=== PATIENT | female | born 1980 | race Caucasian/White ===

== ENCOUNTER 2017-03-30 18:02 | Emergency (ER) | payer BC ==
[2017-03-30] MEDS ORDERED: LIDOCAINE 1% INJ-PF (10 MG/ML) 30 ML SDV INJ ONE (19:20)
[2017-03-30] MEDS ORDERED: DIPH/PERTUSS(ACELL)/TETANUS VAC/PF 0.5 ML SYR (>=10YO) IM ONE (19:22)
--- NOTE | 2017-03-30 19:29 | ER Document Report ---
HPI - HPI Patient complains to provider of: laceration to distal left 2nd finger Onset: This evening Onset/Duration: Sudden Quality of pain: Sharp Severity: Severe Pain Level: 5 Associated Symptoms: Other - finger laceration Exacerbated by: Movement Relieved by: Denies Similar symptoms previously: Yes Recently seen / treated by doctor: Yes - ROS ROS below otherwise negative: Yes - CONSTITUTIONAL Constitutional: DENIES: Fever, Chills - EENT EENT: DENIES: Sore Throat, Ear Pain, Nasal Drainage-Clear, Nasal Drainage- Purulent, Congestion, Eye problems - NEURO Neurology: DENIES: Headache, Weakness, Vision blurred, Dizzinesss / Vertigo - CARDIOVASCULAR Cardiovascular: DENIES: Chest pain - RESPIRATORY Respiratory: DENIES: Trouble Breathing, Coughing - GASTROINTESTINAL Gastrointestinal: DENIES: Abdominal Pain, Nausea, Patient vomiting, Diarrhea, Constipation, Black / Bloody Stools - URINARY Urinary: DENIES: Dysuria, Urgency, Frequency - REPRODUCTIVE Reproductive: DENIES: :, Postmenopausal, Abnormal bleeding / discharge - MUSCULOSKELETAL Musculoskeletal: REPORTS: Extremity pain. 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 denies: DM, Thyroid Disfunction Patient has suicidal ideation: No Patient has homicidal ideation: No - Past Medical History Cardiac Medical History: Reports: None Pulmonary Medical History: Reports: None EENT Medical History: Reports: None Neurological Medical History: Reports: None Renal/ Medical History: Reports: Hx Kidney Stones Malignancy Medical History: Reports: None GI Medical History: Reports: Hx Gastroesophageal Reflux Disease, Hx Irritable Bowel, Hx Endoscopy Musculoskeltal Medical History: Reports Hx Arthritis Skin Medical History: Reports None Psychiatric Medical History: Reports: None Traumatic Medical History: Reports: None Infectious Medical History: Reports: None Past Surgical History: Reports: Hx Cholecystectomy Vertical Provider Document - CONSTITUTIONAL Agree With Documented VS: Yes Exam Limitations: No Limitations - INFECTION CONTROL TRAVEL OUTSIDE OF THE [place] IN LAST 30 DAYS: No - HEENT HEENT: Atraumatic, Normal ENT Exam, Normocephalic, PERRLA - NECK Neck: Normal Inspection, Supple, Thyroid Normal - RESPIRATORY Respiratory: Breath Sounds Normal, No Respiratory Distress, Chest Non-Tender O2 Sat by Pulse Oximetry: 99 - CARDIOVASCULAR Cardiovascular: Regular Rate, Regular Rhythm, No Murmur - GI/ABDOMEN Gastrointestinal: Abdomen Soft, Abdominal Guarding, No Organomegaly, Normal Bowel Sounds - BACK Back: Normal Inspection - MUSCULOSKELETAL/EXTREMETIES Musculoskeletal/Extremeties: MAEW, FROM, Tender - NEURO Level of Consciousness: Awake, Alert, Appropriate Deep Tendon Reflexes: 2+ - DERM Integumentary: Laceration - left 2nd finger Course - Vital Signs Vital signs: Temp Pulse Resp BP Pulse Ox 98.3 F 84 16 136/95 H 99 03/30/17 18:04 03/30/17 18:04 03/30/17 18:04 03/30/17 18:04 03/30/17 18:04 Procedures - Laceration/Wound Repair distal Left index Finger Time completed: 20:10 Wound length (cm): 2 Wound's Depth, Shape: Into muscle, Irregular Laceration pre-procedure: Sterile PPE donned, Sterile drapes applied, Other - surgical scrub Anesthetic type: 1% Lidocaine Volume Anesthetic (mLs): 3 Wound explored: No foreign body removed, Contaminated Irrigated w/ Saline (mLs): 400 Wound Repaired With: Sutures Suture Size/Type: 5:0, Ethilon Number of Sutures: 5 Layer Closure?: No Post-procedure wound care: Sterile dressing applied Post-procedure NV exam normal: Yes Complications: No Discharge - Discharge Clinical Impression: Laceration of index finger of left hand without complication Qualifiers: Encounter type: initial encounter Qualified Code(s): S61.211A - Laceration without foreign body of left index finger without damage to nail, initial encounter Condition: Stable Disposition: HOME, SELF-CARE Additional Instructions: Hand Laceration A laceration on the hand can present special problems. It may be difficult to keep the wound dry. Motion of the fingers can disturb the healing edges. Your work may involve exposure to damaging chemicals or water. Keep the wound clean and dry. If you can't keep the cut dry, undisturbed, and free of chemical exposure, please discuss this with the doctor. If any water or chemical gets onto the dressing, remove it, blot the wound dry, then apply a fresh bandage. Dressings should be changed every day. If you feel the stitches pulling as you move the hand, a splint or other form of protection is needed. If any signs of infection occur (swelling, redness, increasing tenderness, red streaks, tender lumps in the armpit, or fever), see the doctor immediately. SOAP CLEANSING: Gently wash the wound daily using a mild soap (like Ivory, Phisoderm, Neutrogena). Use warm water, rubbing gently until all debris, ooze, and crusting have been washed from the wound. Allow to dry briefly (about 10 minutes) after cleaning. Repeat this cleansing at least three times a day for the first two days and then once or twice a day. ANTIBIOTIC OINTMENT PROTECTION: Your wounds are such that dressing them is not practical or optional. After cleansing, you should apply a thin coating of antibiotic ointment ( Bacitracin, not Neosporin) to the wounds at least three times daily. This lessens infection risk, and may decrease the amount of scarring. Use a q-tip or dull butter knife, not your finger, to apply this ointment. Any debris or ooze which builds up in the ointment should be gently rubbed off with a sterile gauze pad. Harder crusting may need to be gently scrubbed off with a clean wash cloth with soap and warm water, perhaps applying a warm, wet wash cloth to the wound for ten minutes first. Development of redness, severe itching, or blistering may mean allergy to the ointment. See the doctor. TETANUS IMMUNIZATION GIVEN: You have been given an immunization against tetanus. Please record this in your records. In general, a booster is needed only once every 10 years. The tetanus shot protects against tetanus or "lockjaw," which is a complication of certain wound infections (the tetanus shot cannot protect against the actual infection). The immunization site may become warm and red due to local reaction. If this occurs, apply warm compresses and take aspirin or ibuprofen to reduce inflammation and discomfort. Return for evaluation if the reaction becomes severe. FOLLOW-UP CARE: Please return in __3___ days for an infection check and dressing change. Your sutures should be removed in __8___ days. To facilitate a timely removal of your sutures, you may return to the Emergency Department at [facility]. You do not need to call for an appointment, but the best time to come in for suture removal is early in the morning. If you have been referred to another physician for follow-up care, call that physicians office for an appointment as you were instructed. If you experience a significant change in your laceration, or if you are concerned there may be an infection (swelling, redness, drainage, increasing tenderness, red streaks, tender lumps in the armpit or groin above the laceration, or fever) , return to the Emergency Department immediately re-evaluation. Forms: Elevated Blood Pressure, Return to Work [facility] [[facility]] - Follow up as needed
[2017-03-30 20:26] VITALS: BP 126/82
== END 2017-03-30 20:26 | disposition home or self-care (01) ==
LOC: ER 18:02
PROC: 0HQGXZZ Repair Left Hand Skin, External Approach (ICD-10-PCS; principal; 2017-03-30)
DX: S61.211A Laceration without foreign body of left index finger without damage to nail, initial encounter (principal); X58.XXXA Exposure to other specified factors, initial encounter; Z87.442 Personal history of urinary calculi; K21.9 Gastro-esophageal reflux disease without esophagitis; Z90.49 Acquired absence of other specified parts of digestive tract; Z23 Encounter for immunization
CPT/HCPCS: 99282; 90471; 90715; 12001; J3490

== ENCOUNTER 2017-05-31 08:28 | Day surgery (SDC) | payer BC ==
[~2017-05-31 08:28] MED LIST: PROPOFOL INJ 200 MG/20 ML VIAL IV ONE
[2017-05-31 10:51] VITALS: BP 100/74
--- NOTE | 2017-05-31 14:15 | Operative Report ---
Operative Report DATE OF SURGERY: 05/31/17 Operative Report: The risks, benefits and alternatives of the procedure including risks of bleeding, perforation requiring surgery are explained to the patient detail and informed consent was obtained. Patient was taken back to the endoscopy suite and placed in the left, lateral decubital position. Timeout was called. Propofol medications administered. A rectal examination was done which did not reveal any masses, tears or fissures. An Olympus videoscope was inserted into the patient's rectum. The scope was then carefully advanced all the way to the cecum. The cecum was identified by the usual anatomical landmarks including the ileocecal valve as well as appendiceal office. Photodocumentation was obtained. The scope was then sequentially pulled back via the various segments of the colon including the ascending colon, hepatic flexure, transverse colon, splenic flexure, descending colon and finding to the rectosigmoid portions of the colon. Retroflexion maneuver was performed. PREOPERATIVE DIAGNOSIS: Colorectal cancer screening. Rectal bleeding. POSTOPERATIVE DIAGNOSIS: Normal screening. Internal hemorrhoids OPERATION: Diagnostic colonoscopy SURGEON: ZENY COSTELLO ANESTHESIA: LMAC TISSUE REMOVED OR ALTERED: None. COMPLICATIONS: None. ESTIMATED BLOOD LOSS: None. INTRAOPERATIVE FINDINGS: No masses, AVMs, diverticulosis or polyps. PROCEDURE: Patient tolerated the procedure well. No immediate postprocedure complications are noted. Patient discharged in good condition. Discharge date 05/31/2017. Discharge diet: Regular. Discharge activity: Regular. 2-3 week follow-up to discuss findings. Patient is instructed to call the office or proceed to the emergency room should there be any further problems or questions. 10 year surveillance colonoscopy.
== END 2017-05-31 10:42 | disposition home or self-care (01) ==
LOC: END 08:28
PROVIDERS: ATTEND Internal Medicine Gastroenterology
PROC: 0DJD8ZZ Inspection of Lower Intestinal Tract, Via Natural or Artificial Opening Endoscopic (ICD-10-PCS; principal; 2017-05-31 11:00)
DX: K64.8 Other hemorrhoids (principal); K92.1 Melena; M19.90 Unspecified osteoarthritis, unspecified site; M06.9 Rheumatoid arthritis, unspecified; E66.9 Obesity, unspecified; Z88.0 Allergy status to penicillin; Z79.899 Other long term (current) drug therapy; Z68.37 Body mass index [BMI] 37.0-37.9, adult
CPT/HCPCS: 45378; J2704; 810

== ENCOUNTER → 2018-03-03 | Outpatient (CLI) | payer BC ==
[2018-03-03 18:11] LABS: ALANINE AMINOTRANSFERASE 24 U/L (9-52); ALBUMIN 4.3 g/dL (3.5-5.0); ALKALINE PHOSPHATASE 54 U/L (38-126); ANION GAP 11 (5-19); ASPARTATE AMINO TRANSFERASE 14 U/L (14-36); BILIRUBIN,DIRECT 0.2 mg/dL (0.0-0.4); BILIRUBIN,TOTAL 0.4 mg/dL (0.2-1.3); BLOOD UREA NITROGEN 19 mg/dL (7-20); CALCIUM 9.8 mg/dL (8.4-10.2); CARBON DIOXIDE 29 mmol/L (22-30); CHLORIDE 105 mmol/L (98-107); GLUCOSE 97 mg/dL (75-110); POTASSIUM 4.6 mmol/L (3.6-5.0); SODIUM 144.6 mmol/L (137-145); TOTAL PROTEIN 7.5 g/dL (6.3-8.2)
[2018-03-03 19:12] LABS: CHLAM PCR NOT DETECTED (NOT DETECT); GON PCR NOT DETECTED (NOT DETECT)
[2018-03-05 07:41] LABS: HEPATITIS A AB IGM Negative (Negative); HEPATITIS B CORE AB IGM Negative (Negative); HEPATITS B SURFACE ANTIGEN Negative (Negative)
[2018-03-05 09:00] LABS: HEPATITIS C VIRUS ANTIBODY 0.4 s/co ratio (0.0-0.9)
== END ==
LOC: OD 17:09
PROVIDERS: ATTEND Nurse Practitioner Family
DX: Z11.3 Encounter for screening for infections with a predominantly sexual mode of transmission (principal); Z68.34 Body mass index [BMI] 34.0-34.9, adult
CPT/HCPCS: 36415; 80053; 80074; 86592; 86701; 87491; 87591

== ENCOUNTER → 2018-03-05 | Outpatient (CLI) | payer BC ==
[2018-03-05 12:48] LABS: BACTERIA (WET MOUNT) 4+ BACTERIA SEEN; EPITHELIALS (WET MOUNT) 4+ EPITHELIALS SEEN; RBCS (WET MOUNT) FEW RBCS SEEN; T.VAGINALIS (WET MOUNT) NO TRICHOMONAS SEEN; WBCS (WET MOUNT) 1+ WBCS SEEN; YEAST (WET MOUNT) NO YEAST SEEN
== END ==
LOC: LAB 11:48
PROVIDERS: ATTEND Nurse Practitioner Family
DX: N89.8 Other specified noninflammatory disorders of vagina (principal)
CPT/HCPCS: 87210

== ENCOUNTER → 2018-04-19 | Outpatient (CLI) | payer BC | LOC: OD 12:34 | PROVIDERS: ATTEND Nurse Practitioner Family | DX: N91.2 Amenorrhea, unspecified (principal) | CPT/HCPCS: 36415; 84702 ==

== ENCOUNTER 2018-06-03 08:37 | Day surgery (SDC) | payer BC, MEDICAID ==
[2018-06-03] MEDS ORDERED: MIDAZOLAM 2 MG/2 ML INJ ONE ×2 (09:16→10:48)
[2018-06-03] MEDS ORDERED: FAMOTIDINE INJ/PF 20 MG/2 ML SDV IV ONE (09:16)
[2018-06-03] MEDS: METOCLOPRAMIDE HCL INJ/PF 10 MG/2 ML SDV ONE ×2 (09:22→09:24)
[2018-06-03 09:26] LABS: APPEARANCE,URINE CLOUDY; BILIRUBIN,URINE NEGATIVE (NEGATIVE); COLOR,URINE YELLOW; GLUCOSE, URINE NEGATIVE (NEGATIVE); KETONES,URINE NEGATIVE (NEGATIVE); LEUKOCYTE ESTERASE,URINE LARGE (NEGATIVE); NITRITE,URINE NEGATIVE (NEGATIVE); PROTEIN,URINE NEGATIVE (NEGATIVE); URINE SPECIFIC GRAVITY 1.015; UROBILINOGEN,URINE NEGATIVE mg/dL (<2.0)
[2018-06-03] MEDS ORDERED: RINGERS SOLUTION,LACTATED 1,000 ML IV PRN (09:35)
[2018-06-03 09:38] LABS: HEMATOCRIT 33.3 % (36.0-47.0); HEMOGLOBIN 11.4 g/dL (12.0-15.5); MEAN CORPUSCULAR HEMOGLOBIN 29.5 pg (27.0-33.4); MEAN CORPUSCULAR HGB CONC 34.2 g/dL (32.0-36.0); MEAN CORPUSCULAR VOLUME 86 fl (80-97); PLATELET COUNT 305 10^3/uL (150-450); RED BLOOD COUNT 3.86 10^6/uL (3.72-5.28); RED CELL DISTRIBUTION WIDTH 13.3 % (11.5-14.0)
[2018-06-03] MEDS ORDERED: RINGERS SOLUTION,LACTATED 500 ML IV ONE (09:45)
[2018-06-03] MEDS ORDERED: EPHEDRINE SULFATE INJ 50 MG/1 ML AMPULE ONE (10:48)
[2018-06-03] MEDS ORDERED: PROPOFOL INJ 200 MG/20 ML VIAL IV ONE (10:49)
[2018-06-03] MEDS ORDERED: HYDROMORPHONE HCL INJ/PF 2 MG/ML AMPULE ONE (10:49)
[2018-06-03] MEDS ORDERED: ONDANSETRON HCL INJ/PF 4 MG/2 ML SDV ONE (10:49)
[2018-06-03] MEDS ORDERED: PROMETHAZINE HCL INJ 25 MG/1 ML VIAL IV PRN (11:37)
[2018-06-03] MEDS ORDERED: FENTANYL CITRATE INJ/PF 100 MCG/2 ML AMPUL IV PRN ×3 (11:37)
[2018-06-03] MEDS ORDERED: MEPERIDINE HCL/PF INJ 25 MG/1 ML DISP.SYRIN IV PRN (11:37)
[2018-06-03] MEDS ORDERED: DIPHENHYDRAMINE HCL 50 MG/ML VIAL IV PRN (11:37)
--- NOTE | 2018-06-03 12:16 | OPERATIVE REPORT E ---
Operative Report NAME: ANTHONY CHOUDHURY : 1980 AGE: 37Y DATE OF SURGERY: 06/03/2018 ROOM: PREOPERATIVE DIAGNOSIS: Retained products of conception. POSTOPERATIVE DIAGNOSIS: Retained products of conception. PROCEDURE: Suction D and C. SURGEON: NGUYEN SANCHEZ M.D. ANESTHESIA: Dr. Evangelista with general. FINDINGS: The uterus sounded to approximately 12 cm, moderate amounts of products of conception obtained. COMPLICATIONS: None. ESTIMATED BLOOD LOSS: Less than 50 mL. SPECIMENS REMOVED: Products of conception. PROCEDURE IN DETAIL: The patient was taken to the operating room, prepared and draped in a normal sterile fashion in the dorsal lithotomy position. Under sterile conditions an in-and-out catheter was performed of approximately 20 mL of clear urine. A sterile speculum was placed in the vagina and the cervix was grasped on the anterior lip with a single-tooth tenaculum and prepped with the Betadine. The uterus was then sounded with the above findings. The cervix was then dilated to accommodate an 8 mm curved curette which was introduced without difficulty and moderate amounts of products of conception were obtained. Approximately 3 passes were made with the suction curette until there was very minimal products and then a sharp curettage was performed with good grit in [address] around. The instruments were then removed. Sponge, lap, and needle counts were correct x2, and the patient was taken to recovery in stable condition. DICTATING PHYSICIAN: NGUYEN SANCHEZ M.D. [id number] PHY#: [id number] ID: [id number] JOB#: [id number] ACCT: [id number] cc:NGUYEN SANCHEZ M.D. >
[2018-06-03] MEDS ORDERED: ONDANSETRON 4 MG TAB.RAPDIS ONE (13:18)
[2018-06-03 14:57] VITALS: BP 130/78
== END 2018-06-03 15:10 | disposition home or self-care (01) ==
LOC: OROUT 08:37
PROVIDERS: ATTEND Obstetrics & Gynecology
DX: O73.1 Retained portions of placenta and membranes, without hemorrhage (principal); M06.9 Rheumatoid arthritis, unspecified; Z88.0 Allergy status to penicillin
CPT/HCPCS: 36415; 85027; 81001; 88305 ×2; 59812; J2250; S0119; J2765; J1170; J2550; J2405; J2704; S0028; 1965; J3490

== ENCOUNTER → 2019-02-28 | Outpatient (CLI) | payer BC ==
--- NOTE | 2019-02-28 18:16 | RADIOLOGY REPORT (SQ) ---
EXAM DESCRIPTION: CHEST 2 VIEWS COMPLETED DATE/TIME: 02/28/2019 5:56 pm REASON FOR STUDY: R05 COUGH COMPARISON: 09/02/2009 EXAM PARAMETERS: NUMBER OF VIEWS: two views TECHNIQUE: Digital Frontal and Lateral radiographic views of the chest acquired. RADIATION DOSE: NA LIMITATIONS: none FINDINGS: LUNGS AND PLEURA: No opacities, masses or pneumothorax. No pleural effusion. MEDIASTINUM AND HILAR STRUCTURES: No masses or contour abnormalities. HEART AND VASCULAR STRUCTURES: Heart normal size. No evidence for failure. BONES: No acute findings. HARDWARE: None in the chest. OTHER: No other significant finding. IMPRESSION: NO ACUTE RADIOGRAPHIC FINDING IN THE CHEST. TECHNICAL DOCUMENTATION: JOB ID: [id number] [employer]- All Rights Reserved Reading location - IP/workstation name: [email or web address]
== END ==
LOC: RAD 17:22
PROVIDERS: ATTEND Nurse Practitioner Family
DX: R05 Cough (principal)
CPT/HCPCS: 71046

== ENCOUNTER → 2019-07-09 | Outpatient (CLI) | payer BC ==
[2019-07-09 15:21] LABS: CHLAM PCR NOT DETECTED (NOT DETECT)
== END ==
LOC: LAB 13:28
PROVIDERS: ATTEND Nurse Practitioner Family
DX: Z11.3 Encounter for screening for infections with a predominantly sexual mode of transmission (principal)
CPT/HCPCS: 87491; 87591

== ENCOUNTER 2020-06-14 12:45 | Emergency (ER) | payer BC, MEDICAID ==
--- NOTE | 2020-06-14 13:34 | ER Document Report ---
ED Fall - General Chief Complaint: Fall Injury Stated Complaint: FALL/HEAD INJURY Time Seen by Provider: 06/14/20 13:12 Primary Care Provider: NATHALY WITT NP [Primary Care Provider] - Follow up as needed Notes: CHIEF COMPLAINT: Head injury from fall HPI: 39-year-old female who is 32 weeks gestation presenting for head injury. Patient was wearing flip-flops climbing stairs when she tripped and fell rolling down the stairs. Struck the right side of her head on a rail no loss of consciousness. Complains of very mild headache. Mild left lateral neck pain. Patient was brought in by EMS. Patient was placed in a cervical collar. Patient denies any abdominal pain. She does complain of some soreness down the right side of the body. Patient does complain of a laceration to the right scalp where she struck the rail. States she is up-to-date on her tetanus vaccination. Denies vaginal bleeding or discharge ROS: See HPI - all other systems were reviewed and are otherwise negative Constitutional: no fever Eyes: no drainage, no blurred vision ENT: no runny nose, no sore throat Cardiovascular: no chest pain Resp: no SOB, no cough GI: no vomiting, no diarrhea, no abdominal pain : no dysuria Integumentary: no rash, positive laceration Allergy: no hives Musculoskeletal: no extremity pain or swelling, positive neck pain Neurological: no numbness/tingling, no weakness, positive head injury MEDICATIONS: I agree with the patient medications as charted by the RN. ALLERGIES: I agree with the allergies as charted by the RN. PAST MEDICAL HISTORY/PAST SURGICAL HISTORY: Reviewed and agree as charted by RN. SOCIAL HISTORY: Reviewed and agree as charted by RN. FAMILY HISTORY: No significant familial comorbid conditions directly related to patient complaint EXAM: Reviewed vital signs as charted by RN. CONSTITUTIONAL: Alert and oriented and responds appropriately to questions. Well-appearing; well-nourished HEAD: Normocephalic; there is a wound to the right parietal scalp region, unable to definitively visualize it at this time initially secondary to positioning, dried blood in the region EYES: PERRL; Conjunctivae clear, sclerae non-icteric ENT: normal nose; no rhinorrhea; moist mucous membranes; pharynx without lesions noted, no uvula edema or deviation, no tonsillar hypertrophy, phonation normal NECK: Supple without meningismus; non-tender directly over the cervical spine on palpation. The cervical collar was removed, patient is able to fully rotate the head to the left and right as well as flex and extend without any discomfort over the cervical spine. Minimal tenderness in his lateral left cervical musculature; no cervical lymphadenopathy, no masses CARD: RRR; no murmurs, no clicks, no rubs, no gallops; symmetric distal pulses RESP: Normal chest excursion without splinting or tachypnea; breath sounds clear and equal bilaterally; no wheezes, no rhonchi, no rales, pulse oximetry ABD/GI: Normal bowel sounds; non-distended; soft, non-tender, no rebound, no guarding; gravid uterus palpable. BACK: The back appears normal and is non-tender to palpation, there is no CVA tenderness EXT: Normal ROM in all joints; non-tender to palpation; no cyanosis, no effusions, no edema SKIN: Normal color for age and race; warm; dry; good turgor; no acute lesions noted NEURO: Moves all extremities equally; Motor and sensory function intact PSYCH: The patient's mood and manner are appropriate. Grooming and personal hygiene are appropriate. MDM: 39-year-old female reporting decreased movement after a mechanical fall where she fell down 6 stairs. Did hit her head on the rail, has a laceration is up-to-date on tetanus vaccination. Nursing was unable to get heart tones here, patient has a large body habitus. Will send for ultrasound to evaluate . We will clean wound area and reassess wound to determine if it needs closure with shayla or sutures or no closure. TRAVEL OUTSIDE OF THE [place] IN LAST 30 DAYS: No - Related data Allergies/Adverse Reactions: Penicillins Allergy (Severe, Verified 05/31/17 08:58) RASH Past Medical History - Social History Smoking Status: Never Smoker Chew tobacco use (# tins/day): No Frequency of alcohol use: None Drug Abuse: None Family History: Arthritis, CAD, CVA, Hyperlipidemia, Hypertension, Malignancy. denies: DM, Thyroid Disfunction Patient has homicidal ideation: No - Past Medical History Cardiac Medical History: Denies: Hx Coronary Artery Disease, Hx Heart Attack, Hx Hypertension Pulmonary Medical History: Denies: Hx Asthma, Hx Bronchitis, Hx COPD, Hx Pneumonia Neurological Medical History: Denies: Hx Cerebrovascular Accident, Hx Seizures Renal/ Medical History: Reports: Hx Kidney Stones. Denies: Hx Peritoneal Dialysis GI Medical History: Reports: Hx Gastroesophageal Reflux Disease, Hx Irritable Bowel, Hx Endoscopy Musculoskeletal Medical History: Denies Hx Arthritis Past Surgical History: Reports: Hx Cholecystectomy - Immunizations Hx Diphtheria, Pertussis, Tetanus Vaccination: Yes Physical Exam - Vital signs Vitals: Temp Pulse Resp BP Pulse Ox 98.6 F 120 H 14 142/89 H 96 06/14/20 12:47 06/14/20 12:47 06/14/20 12:47 06/14/20 12:47 06/14/20 12:47 Course - Re-evaluation Re-evalutation: 06/14/20 14:34 Patient ultrasound did not show acute abnormalities. Will discuss with her DOCUMENT MANAGEMENT ANALYST. I have placed a call to Dr. Merino. Patient's wound on the right parietal scalp is approximately 2.5 cm in an L shape. This will need staple closure 06/14/20 15:[address] Shahrzad Merino, OB. Requests that we send the patient to L&D the patient is in agreement - Vital Signs Vital signs: Temp Pulse Resp BP Pulse Ox 98.6 F 120 H 14 142/89 H 96 06/14/20 12:47 06/14/20 12:47 06/14/20 12:47 06/14/20 12:47 06/14/20 12:47 Procedures - Laceration/Wound Repair Right Head Time completed: 14:46 Wound length (cm): 2 Wound's Depth, Shape: Superficial, Linear Laceration pre-procedure: Sterile PPE donned, Sterile drapes applied, Other - saline Anesthetic type: 1% Lidocaine Volume Anesthetic (mLs): 2 Wound explored: Clean Irrigated w/ Saline (mLs): 500 Wound Repaired With: Scenic Number of Sutures: 3 Layer Closure?: No Post-procedure wound care: Other - antibiotic ointment Post-procedure NV exam normal: Yes Complications: No Discharge - Discharge Clinical Impression: Fall (on) (from) other stairs and steps, initial encounter Head injury due to trauma Qualifiers: Encounter type: initial encounter Qualified Code(s): S09.90XA - Unspecified injury of head, initial encounter Laceration of scalp Qualifiers: Encounter type: initial encounter Qualified Code(s): S01.01XA - Laceration without foreign body of scalp, initial encounter Qualifiers: Weeks of gestation: 32 weeks Qualified Code(s): Z3A.32 - 32 weeks gestation of Condition: Stable Disposition: LABOR CHECK Additional Instructions: Tylenol for pain. Cool compresses to the scalp. You may wash her hair, do not tell dry over the shayla. Apply small amount of antibiotic ointment over the staple wound area until healed, the shayla will need to come out in 7 to 10 days. Referrals: NATHALY WITT NP [Primary Care Provider] - Follow up as needed
--- NOTE | 2020-06-14 14:05 | RADIOLOGY REPORT (SQ) ---
EXAM DESCRIPTION: U/S OB LIMITED IMAGES COMPLETED DATE/TIME: 06/14/2020 1:45 pm REASON FOR STUDY: fall, decreased movement, 32 wks COMPARISON: None. TECHNIQUE: Limited transabdominal grayscale ultrasound for evaluation of specific requested obstetri elba parameters. LIMITATIONS: None. FINDINGS: CERVICAL LENGTH: 3 cm. Closed. JOSIAH: 20.9 cm. LVP: 12.8 x 6.6 cm. FHR: 145 beats per minute. PRESENTATION: Vertex. PLACENTA: Anterior. ANATOMY: Not assessed. OTHER: No other findings. IMPRESSION: LIMITED OBSTETRICAL ULTRASOUND WITH MEASURED PARAMETERS DELINEATED ABOVE. Trimester of : Third trimester - 28 weeks to delivery. TECHNICAL DOCUMENTATION: JOB ID: [id number] 2010 [employer]- All Rights Reserved Reading location - IP/workstation name: [email or web address]
[2020-06-14] MEDS ORDERED: LIDOCAINE 1% INJ (10 MG/ML) 10 ML MDV INJ ONE (14:28)
[2020-06-14 15:36] VITALS: BP 130/66
== END 2020-06-14 15:36 | disposition admitted as inpatient to this hospital (09) ==
LOC: ER 12:45
DX: O9A.213 Injury, poisoning and certain other consequences of external causes complicating pregnancy, third trimester (principal); S01.01XA Laceration without foreign body of scalp, initial encounter; W10.9XXA Fall (on) (from) unspecified stairs and steps, initial encounter; O26.893 Other specified pregnancy related conditions, third trimester; R51 Headache; O36.8130 Decreased fetal movements, third trimester, not applicable or unspecified; Z3A.32 32 weeks gestation of pregnancy; Z88.0 Allergy status to penicillin
CPT/HCPCS: 36415; 59025; 76815; 80307; 81001; 85025; 85384; 85460; 85730; 86900; 86901; 87086; 99285

== ENCOUNTER 2020-06-14 15:49 | Outpatient (CLI) | payer BC, MEDICAID ==
[2020-06-14 17:16] LABS: ABSOLUTE BASOPHILS # (AUTO) 0.1 10^3/uL (0.0-0.2); ABSOLUTE EOSINOPHILS # (AUTO) 0.2 10^3/uL (0.0-0.6); ABSOLUTE LYMPHOCYTES (AUTO) 2.3 10^3/uL (0.5-4.7); ABSOLUTE MONOCYTES (AUTO) 0.9 10^3/uL (0.1-1.4); ABSOLUTE NEUT (AUTO) 9.9 10^3/uL (1.7-8.2); BASOPHILS % (AUTO) 0.4 % (0-2); EOSINOPHILS % (AUTO) 1.6 % (0-6); HEMOGLOBIN 12.1 g/dL (12.0-15.5); MEAN CORPUSCULAR HEMOGLOBIN 29.4 pg (27.0-33.4); MEAN CORPUSCULAR HGB CONC 33.6 g/dL (32.0-36.0); MEAN CORPUSCULAR VOLUME 88 fl (80-97); PLATELET COUNT 239 10^3/uL (150-450); RED BLOOD COUNT 4.11 10^6/uL (3.72-5.28); RED CELL DISTRIBUTION WIDTH 14.3 % (11.5-14.0); TOTAL CELLS COUNTED % (AUTO) 100 %; WHITE BLOOD COUNT 13.4 10^3/uL (4.0-10.5)
[2020-06-14 17:23] LABS: PARTIAL THROMBOPLASTIN TIME 26.3 SEC (23.5-35.8)
[2020-06-14 17:55] LABS: APPEARANCE,URINE TURBID; BILIRUBIN,URINE NEGATIVE (NEGATIVE); CALCIUM OXALATE CRYSTALS,URINE TOO NUMEROUS TO CNT /HPF; COLOR,URINE AMBER; GLUCOSE, URINE NEGATIVE (NEGATIVE); KETONES,URINE NEGATIVE (NEGATIVE); LEUKOCYTE ESTERASE,URINE TRACE (NEGATIVE); NITRITE,URINE NEGATIVE (NEGATIVE); PROTEIN,URINE NEGATIVE (NEGATIVE); URINE SPECIFIC GRAVITY 1.026; UROBILINOGEN,URINE NEGATIVE mg/dL (<2.0)
[2020-06-14 18:35] LABS: URINE AMPHETAMINES SCREEN NEGATIVE; URINE BARBITURATES SCREEN NEGATIVE; URINE BENZODIAZEPINES SCREEN NEGATIVE; URINE COCAINE SCREEN NEGATIVE; URINE MARIJUANA (THC) SCREEN NEGATIVE; URINE METHADONE SCREEN NEGATIVE; URINE PHENCYCLIDINE SCREEN NEGATIVE
--- NOTE | 2020-06-14 19:17 | Non Stress Test Report ---
Non Stress Test Datetime Report Generated by CPN: 06/14/2020 19:17 DEMOGRAPHIC Test Number: 1 EGA NST: 32.2 INDICATION Indication for Study (NST) Other: fell down stairs VITAL SIGNS Temperature - NST: 98.4 Pulse - NST: 90 RESP - NST: 18 NBPSYS NST: 121 NBPDIA NST: 60 MONITORING Monitor Explained: Monitor Explained; Test Explained; Patient Verbalized Understanding Time on Monitor: 06/14/2020 16:17 Time off Monitor: 06/14/2020 18:33 NST Duration: 136 NST INTERVENTIONS Physician Notified NST: A Post CNM BABY A: [id number] BABY A Movement : Present Contraction Frequency : 0 FHR Baseline : 135 Accelerations : 15X15 Decelerations : None Variability : Moderate 6-25bpm NST Review: Meets Criteria for Reactive NST NST Review and Verified By : R. Marhefka, RN NST Results: Reactive NST COMMENTS NST Comments: KB pending NST REPORT Report Trigger: Send Report
[2020-06-14 19:48] LABS: RHOGAM DOSE INDICATED 0 VIAL(S)
== END 2020-06-14 18:43 | disposition home or self-care (01) ==
LOC: LC 15:49
PROVIDERS: ATTEND Student in an Organized Health Care Education/Training Program
DX: O09.523 Supervision of elderly multigravida, third trimester (principal); Z3A.32 32 weeks gestation of pregnancy; W10.9XXA Fall (on) (from) unspecified stairs and steps, initial encounter; Z88.0 Allergy status to penicillin
CPT/HCPCS: 36415; 80307; 81001; 85025; 85384; 85460; 85730; 86900; 86901; 87086

== ENCOUNTER 2020-08-16 06:32 | Inpatient (IN) | payer BC, MEDICAID ==
[2020-08-16] MEDS ORDERED: OXYTOCIN/0.9 % SODIUM CHLORIDE 30 UNIT/500 ML RTUINJ IV PRN ×2 (06:43→12:04)
[2020-08-16] MEDS ORDERED: RINGERS SOLUTION,LACTATED 1,000 ML IV PRN (06:44)
[2020-08-16] MEDS ORDERED: RINGERS SOLUTION,LACTATED 1,000 ML IV ONE (06:44)
[2020-08-16 07:17] LABS: ABSOLUTE BASOPHILS # (AUTO) 0.1 10^3/uL (0.0-0.2); ABSOLUTE EOSINOPHILS # (AUTO) 0.2 10^3/uL (0.0-0.6); ABSOLUTE LYMPHOCYTES (AUTO) 2.1 10^3/uL (0.5-4.7); ABSOLUTE MONOCYTES (AUTO) 0.7 10^3/uL (0.1-1.4); ABSOLUTE NEUT (AUTO) 9.8 10^3/uL (1.7-8.2); BASOPHILS % (AUTO) 0.6 % (0-2); EOSINOPHILS % (AUTO) 1.3 % (0-6); HEMATOCRIT 35.8 % (36.0-47.0); HEMOGLOBIN 12.5 g/dL (12.0-15.5); LYMPHOCYTES % (AUTO) 16.2 % (13-45); MEAN CORPUSCULAR HGB CONC 35.1 g/dL (32.0-36.0); MEAN CORPUSCULAR VOLUME 88 fl (80-97); MONOCYTES % (AUTO) 5.5 % (3-13); PLATELET COUNT 216 10^3/uL (150-450); RED BLOOD COUNT 4.05 10^6/uL (3.72-5.28); RED CELL DISTRIBUTION WIDTH 15.2 % (11.5-14.0); SEGMENTED NEUTROPHILS % (AUTO) 76.4 % (42-78); TOTAL CELLS COUNTED % (AUTO) 100 %; WHITE BLOOD COUNT 12.9 10^3/uL (4.0-10.5)
[2020-08-16 07:33] LABS: APPEARANCE,URINE CLOUDY; BILIRUBIN,URINE NEGATIVE (NEGATIVE); COLOR,URINE AMBER; GLUCOSE, URINE NEGATIVE (NEGATIVE); KETONES,URINE NEGATIVE (NEGATIVE); LEUKOCYTE ESTERASE,URINE NEGATIVE (NEGATIVE); NITRITE,URINE NEGATIVE (NEGATIVE); PROTEIN,URINE 30 mg/dL (NEGATIVE); URINE SPECIFIC GRAVITY 1.028; UROBILINOGEN,URINE NEGATIVE mg/dL (<2.0)
[2020-08-16] MEDS ORDERED: OXYTOCIN 10 UNIT/ML VIAL ONE (07:46)
[2020-08-16] MEDS ORDERED: OXYTOCIN/0.9 % SODIUM CHLORIDE 30 UNIT/500 ML RTUINJ ONE (07:46)
[2020-08-16] MEDS ORDERED: MISOPROSTOL 0.2 MG TABLET ONE (07:46)
[2020-08-16] MEDS ORDERED: LIDOCAINE 1% INJ-PF (10 MG/ML) 30 ML SDV ONE (07:46)
[2020-08-16 07:52] LABS: URINE AMPHETAMINES SCREEN NEGATIVE; URINE BARBITURATES SCREEN NEGATIVE; URINE BENZODIAZEPINES SCREEN NEGATIVE; URINE COCAINE SCREEN NEGATIVE; URINE MARIJUANA (THC) SCREEN NEGATIVE; URINE METHADONE SCREEN NEGATIVE; URINE PHENCYCLIDINE SCREEN NEGATIVE
--- NOTE | 2020-08-16 10:23 | Admission Physical ---
Datetime Report Generated by CPN: 08/16/2020 10:22 CURRENT ADMISSION Hx Assessment: The History has been Reviewed and is Current Admit Impression : Postterm, Intrauterine Admit Plan: Admit to Unit ALLERGIES Medication Allergies: Yes Medication Allergies: Penicillins/SV/RASH (08/16/2020) Latex: No Latex Allergies OBSTETRICAL HISTORY EDC: 08/07/2020 00:00 : 4 Para: 2 Term: 2 : 0 SAB: 0 IAB: 1 Ectopic: 0 Livin Cesareans: 0 VBACs: 0 Multiple Births: 0 Gestational Diabetes: No Rh Sensitization: No Incompetent Cervix: No ROXANN: No Infertility: No ART Treatment: No Uterine Anomaly: No IUGR: No Hx Previous C/S: No Macrosomia: No Hx Loss/Stillborn: No PIH: No Hx : No Placenta Previa/Abruption: No Depression/PP Depression: No PTL/PROM: No Post Hemorrhage: No Current Procedures: NST Obstetrical History Comments: G1- 2001 at term- ICU for septic shock G2- 2007 at term G3- 2017 EAB with D_C G4- current SEE RECORDS Alcohol: No Marijuana : No Cocaine: No Other Illicit Drugs: No Cigarettes: Never Smoker. [id number] MEDICAL HISTORY Diabetes: No Blood Transfusion: No Pulmonary Disease (Asthma, TB): No Breast Disease: No Hypertension: No Clinical Technician Surgery: No Heart Disease: No Hosp/Surgery: Yes Autoimmune Disorder: No Anesthetic Complications: No Kidney Disease: No Abnormal Pap Smear: No Neuro/Epilepsy: No Psychiatric Disorders: No Other Medical Diseases: No Hepatitis/Liver Disease: No Significant Family History: No Varicosities/Phlebitis: No Trauma/Violence : No Thyroid Dysfunction: No Medical History Comments: Rheumatoid arthritis, HSV, juan INFECTIOUS HISTORY Gonorrhea: No Genital Herpes: Yes Chlamydia: No Tuberculosis: No Syphilis: No Hepatitis: No HIV/AIDS Exposure: No Rash or Viral Illness: No HPV: Yes Infectious History Comments: HSV on valtrex, HPV PHYSICAL EXAM General: Normal HEENT: Deferred Neurologic: Normal Thyroid: Normal Heart: Normal Lungs: Normal Breast: Deferred Back: Normal Abdomen: Normal Genitourinary Exam: Normal Extremities: Normal DTRs: Normal Pelvic Type: Adequate Physical Exam Comments: Hx of HSV, on Valtrex, no lesions RH Neg post dates Mprbid obesity FETUS A Monitoring: External US Admit Comment: Admitted to LD for IOL for postdates, uc's q 3-4, Cat 1, OOB to BR to void, sitting on ball, c/o of pain, no cervix change after last check Plan: continue Pitocin, epidural when needed PLANS FOR LABOR AND DELIVERY Labor and Delivery: None Pain Management: Natural Feeding Preference: Breast Circumcision: Yes INFORMED CONSENT Assignment: Shahrzad Merino MD Signature: with User ID: [email or web address] : with User ID: [email or web address]
[2020-08-16] MEDS ORDERED: ONDANSETRON HCL INJ/PF 4 MG/2 ML SDV ONE (10:25)
[2020-08-16] MEDS ORDERED: ONDANSETRON HCL INJ/PF 4 MG/2 ML SDV IV ONE (10:34)
--- NOTE | 2020-08-16 11:26 | L&D Progress Notes ---
PROGRESS NOTES Datetime Report Generated by CPN: 08/16/2020 11:26 PROGRESS NOTE Comment: VE= 8/90/vtx/-2, AROM with uc, mod mec, pt moaning with each uc, declines epidural LAST VAGINAL EXAM-NURSING Nursing Exam Dilitation: 8.0 Nursing Exam Effacement: 90 Nursing Exam Station: -2 FETUS A : 41.2 SIGNATURE SIGNATURE: [id number];14,[id number];13,[id number] Assignment: Shahrzad Merino MD Signature: with User ID: Luz : with User ID: Luz
[2020-08-16] MEDS ORDERED: DIBUCAINE 1% OINTMENT 28 GM TP PRN (12:04)
[2020-08-16] MEDS ORDERED: DIPHENHYDRAMINE HCL 25 MG CAPSULE PO PRN (12:04)
[2020-08-16] MEDS ORDERED: MEASLES,MUMPS&RUBELLA VACC/PF 0.5 ML VIAL SUBCUT PRN (12:04)
[2020-08-16] MEDS ORDERED: BENZOCAINE/MENTHOL AEROSOL SPRAY 56 ML TOP PRN (12:04)
[2020-08-16] MEDS ORDERED: DIPH/PERTUSS(ACELL)/TETANUS VAC/PF 0.5 ML SYR (>=10YO) IM PRN (12:04)
[2020-08-16] MEDS ORDERED: MAGNESIUM HYDROXIDE SUSP 30 ML UDCUP PO PRN (12:04)
[2020-08-16] MEDS ORDERED: PROMETHAZINE HCL INJ 25 MG/1 ML VIAL IV PRN (12:04)
[2020-08-16] MEDS ORDERED: ACETAMINOPHEN 325 MG TABLET PO PRN (12:04)
[2020-08-16] MEDS ORDERED: PROMETHAZINE HCL 25 MG SUPP.RECT PR PRN (12:04)
[2020-08-16] MEDS ORDERED: GLYCERIN/WITCH HAZEL LEAF 1 EACH MED..WIPE TP PRN (12:04)
[2020-08-16] MEDS ORDERED: PSEUDOEPHEDRINE HCL 30 MG TABLET PO PRN (12:04)
[2020-08-16] MEDS ORDERED: PROMETHAZINE HCL 25 MG TABLET PO PRN (12:04)
[2020-08-16] MEDS ORDERED: NA PHOS,M-B/NA PHOS,DI-BA (ADULT) 133 ML ENEMA PR PRN (12:04)
[2020-08-16] MEDS ORDERED: ZOLPIDEM TARTRATE 5 MG TABLET PO PRN (12:04)
[2020-08-16] MEDS ORDERED: ACETAMINOPHEN WITH CODEINE #3 TABLET PO PRN ×2 (12:04)
[2020-08-16] MEDS ORDERED: MISOPROSTOL 0.2 MG TABLET PR ONE (12:38)
--- NOTE | 2020-08-16 14:43 | Birth Certificate Data ---
Cert Data Datetime Report Generated by CPN: 08/16/2020 14:42 CERTIFICATE DATA Delivery Provider: Angely Howell CNM (06/14/2020 16:25:Lizy Howard RN) 47a. Care: Yes (06/14/2020 16:25:Princess Maharaj RN) 47b. Date of First Visit: 01/26/2020 00:00 (06/14/2020 16:25:Princess Maharaj RN) 47c. Date of Last Visit: 08/08/2020 00:00 (06/14/2020 16:25:Princess Maharaj RN) 47d. Number of Visits: 12 (06/14/2020 16:25:Princess Maharaj RN) 48a. Number of Prev Live Births: 2 (06/14/2020 16:25:Princess Maharaj RN) 48b. Now Livin (06/14/2020 16:25:Nella Vallecillo RN) 48c. Live Births Now : 0 (06/14/2020 16:25:QS system process) 48e. Losses: 1 (06/14/2020 16:25:Princess Maharaj RN) RISK FACTORS IN THIS 49a. Diabetes: No (06/14/2020 16:25:Princess Maharaj RN) 49b. Hypertension: No (06/14/2020 16:25:Princess Maharaj RN) 49c. Previous Births: 0 (06/14/2020 16:25:Nella Vallecillo RN) 49d. Stillborns: No (06/14/2020 16:25:Princess Maharaj RN) 49d. IUGR: No (06/14/2020 16:25:Princess Maharaj RN) 49e. Infertility Treatment: No (06/14/2020 16:25:Princess Maharaj RN) 49f. Previous Cesareans: 0 (06/14/2020 16:25:Princess Maharaj RN) Mother's Height 50b. Height Inches: 67 (08/16/2020 14:34:QS system process) Mother's Weight 51a. Pre- Weight (lbs): 252 (06/14/2020 16:25:Lizy Howard RN) 51b. Weight at Delivery (lbs): 308 (08/16/2020 14:34:QS system process) 52. Dt Last Normal Menses Began: 11/08/2019 00:00 (06/14/2020 16:25:Princess Maharaj RN) Infections Present/Treated 53a. Gonorrhea: No (06/14/2020 16:25:Princess Maharaj RN) Results this Hospital Visit : Negative (06/14/2020 16:25:Gabriela Collier RN) 53b. Syphilis: No (06/14/2020 16:25:Princess Maharaj RN) 53c. Chlamydia: No (06/14/2020 16:25:Princess Maharaj RN) Results this Hospital Visit: Negative (06/14/2020 16:25:Gabriela Collier RN) 53d. Hepatitis B: No (06/14/2020 16:25:Princess Maharaj RN) Results this Hospital Visit: Negative (06/14/2020 16:25:Gabriela Collier RN) 53e. Hepatitis C: Negative (06/14/2020 16:25:Gabriela Collier RN) 53h. Mother Tested for HBsAG: Yes (06/14/2020 16:25:Gabriela Collier RN) 53i. Date Tested: 01/26/2020 00:00 (06/14/2020 16:25:Gabriela Collier RN) 53j. Test Result: Negative (06/14/2020 16:25:Gabriela Collier RN) Obstetric Procedures 54a, b, c. Obstetric Procedures: NST (06/14/2020 16:25:Gabriela Collier RN) Cigarette Smoking Cigarette Smoking: Never Smoker. [id number] (06/14/2020 16:25:Gabriela Collier RN) 55a. 3 Months Before Preg - Ci (06/14/2020 16:25:Ivette Sr RN) 55a. Packs: 0 (06/14/2020 16:25:Ivette Sales, RN) 55b. 1st Trimester of Preg- Ci (06/14/2020 16:25:Ivette Sales, RN) 55b. Packs: 0 (06/14/2020 16:25:Ivette Sales, RN) 55c. 2nd Trimester of Preg- Ci (06/14/2020 16:25:Ivette Sales, RN) 55c. Packs: 0 (06/14/2020 16:25:Ivette Sales, RN) 55d. 3rd Trimester of Preg- Ci (06/14/2020 16:25:Ivette Sales, RN) 55d. Packs: 0 (06/14/2020 16:25:Ivette Sales, RN) Onset of Labor 56a. PROM >12 Hrs: 0.68 (06/14/2020 16:25:QS system process) 56b. Precipitous Labor <3 Hrs: 3 (06/14/2020 16:25:QS system process) 56c. Prolonged Labor > 20 Hrs: 3 (06/14/2020 16:25:QS system process) 57a. Induction of Labor: Induction (06/14/2020 16:25:Lizy Howard RN) 57c. Non-Vertex Presentation A: Vertex (06/14/2020 16:25:Ivette Sr RN) 57d. Steroids - Lung Mat: None (06/14/2020 16:25:Lizy Howard RN) 57d. Steroids - Lung Mat: Not Applicable (06/14/2020 16:25:Lizy Howard RN) 57f. Mat [place] or Temp >100.4: 98.0 (06/14/2020 16:25:Ivette Sr RN) 57g. Moderate/Heavy Meconium: Moderate Meconium (08/16/2020 11:22:Ivette Sr RN) 57h. Intolerance of Labor: N/A (06/14/2020 16:25:Lizy Howard RN) : N/A (06/14/2020 16:25:Lizy oHward RN) 57i. Epidural/Spinal Anesthesia: None (06/14/2020 16:25:Lizy Howard RN) Method of Delivery 58a. Forceps - Unsuccessful A: N/A (06/14/2020 16:25:Ivette Sr RN) 58b. Vacuum - Unsuccessful A: N/A (06/14/2020 16:25:Ivette Sr RN) 58c. Presentation at 58c. Presentation at - A : Vertex (06/14/2020 16:25:Ivette Sales, RN) 58c. Presentation at - A : N/A (06/14/2020 16:25:[facility], RN) 58c. Presentation at - A : Cephalic (06/14/2020 16:25:Ivette [facility], RN) Final Route and Method of Del 58d. Baby A Route/Delivery: Vaginal (08/16/2020 12:03:Lizy Howard RN) 58e. Trial of Labor Attempted: No (06/14/2020 16:25:Lizy Howard RN) 58e. Trial of Labor Attempted A: N/A (06/14/2020 16:25:Lizy Howard RN) 58e. Trial of Labor Attempted B: N/A (06/14/2020 16:25:Lizy Howard RN) Maternal Morbidity 59b. 3rd or 4th Degree Lacs: Perineal; Vaginal (06/14/2020 16:25:Lizy Howard RN) Birthweight Baby A: 4661 (06/14/2020 16:25:Sadaf Cormier RN) 60a. Pounds : 10 (06/14/2020 16:25:QS system process) 60b. Ounces: 4 (06/14/2020 16:25:QS system process) 61. GA at Delivery Baby A: 41.2 (06/14/2020 16:25:Lizy Howard RN) : Late Term- 41- 41.6 Weeks (06/14/2020 16:25:QS system process) 62a. 5 Minute Baby A: 9 (06/14/2020 16:25:QS system process)
--- NOTE | 2020-08-16 14:43 | Delivery Summary ---
Del Sum A-C Datetime Report Generated by CPN: 08/16/2020 14:42 DELIVERY PERSONNEL DELIVERY PERSONNEL: [id number] Delivery Doctor:: Angely Howell CNM Labor and Delivery Nurse:: Ivette Sr RNwedger Nurse:: Lizy Howard RN Branch Or Department Chief Librarian/DIGITAL ASSISTANT: Karoline Elliottko, DIRECTOR OF CLINICAL EDUCATION MATERNAL INFORMATION Delivery Anesthesia: None Medications After Delivery: Pitocin 30 Units in 500ml NS/D5W; Cytotec 1000mcg Per Rectum/Vagina Delivery QBL: 200 Maternal Complications: None Provider Comments: called to room uncontrolled pushing, deliverd live male infant from OA to CHITO over laceration. Unable to place on abd due to short cord, cord clamped and cut by FOB, mother holding baby, spont delivery of grossly normal large placenta, 3 VC, FFFM, massage, Pitocin and Cytotec 1000mcg via rectum perineal and vaginal laceration repaired with 2-0 chromic usin 2% Lidocaine, baby and mom remain in recovery in stable condition FFFM LABOR SUMMARY EDC: 08/07/2020 00:00 No. Babies in Womb: 1 Attempted: No Labor Anesthesia: None LABOR INFORMATION Reason for Induction: Post Dates; Other Reason for Induction- Other: AMA Onset of Labor: 08/16/2020 08:15 Complete Dilatation: 08/16/2020 11:56 Oxytocin: Induction Group B Beta Strep: negative Name of Antibiotic Given: NA Steroids Given: None Reason Steroids Not Administered: Not Applicable MEMBRANES Membranes Rupture Method: Artificial Rupture of Membranes: 08/16/2020 11:22 Length of Rupture (hr): 0.68 Amniotic Fluid Color: Moderate Meconium Amniotic Fluid Amount: Small Amniotic Fluid Odor: Normal STAGES OF LABOR Stage 1 hr: 3 Stage 1 min: 41 Stage 2 hr: 0 Stage 2 min: 7 Stage 3 hr: 0 Stage 3 min: 8 Total Time in Labor hr: 3 Total Time in Labor min: 56 VAGINAL DELIVERY Episiotomy: None Laceration #1: Perineal; Vaginal Laceration Extension #1: Second Degree Laceration Repair: Yes Laceration Repair Note: 2-0 chromic, rectum patent Sponge Count Correct: Yes Sharps Count Correct: Yes CSECTION DELIVERY Primary Indication: N/A Secondary Indication: N/A CSection Incidence: N/A Labor: N/A Elective: N/A CSection Incision: N/A BABY A INFORMATION Delivery Date/Time: 08/16/2020 12:03 Method of Delivery: Vaginal Nurse Controlled Delivery: No Born in Route : No : N/A Forceps: N/A Vacuum Extraction: N/A Shoulder Dystocia : No PRESENTATION/POSITION BABY A Presentation: Cephalic Cephalic Presentation: Vertex Vertex Position: Right Occipital Anterior Breech Presentation: N/A PLACENTA INFORMATION BABY A Placenta Delivery Time : 08/16/2020 12:11 (Annotations: Data stored by [facility] on behalf of user) Placenta Method of Delivery: Spontaneous Placenta Status: Delivered SCORES BABY A Heart Rate 1 min: >100 bpm Resp Effort 1 min: Good Cry Reflex Irritability 1 min: Cough or Sneeze or Pulls Away Muscle Tone 1 min: Active Motion Color 1 min: Blue/Pale SCORE 1 MIN: 8 Heart Rate 5 min: >100 bpm Resp Effort 5 min: Good Cry Reflex Irritability 5 min: Cough or Sneeze or Pulls Away Muscle Tone 5 min: Active Motion Color 5 min: Body R[place], Extremities Blue Resuscitation Effort 5 min: N/A SCORE 5 MIN: 9 INFORMATION BABY A Gestational Age at Delivery: 41.2 Gestational Status: Late Term- 41- 41.6 Weeks Infant Outcome : Liveborn Infant Condition : Stable Infant Sex: Male IDENTIFICATION BABY A Infant Verification Date/Time: 08/16/2020 12:53 ID Band Number: [id number] Mother's Name Verified: Yes Infant RN Verifying : M. Sales, RN Additional Verifying Personnel: BMinisterio Howard, RN WEIGHT/LENGTH BABY A Birthweight (gm): 4661 Infant Weight (lb): 10 Infant Weight (oz): 4 Length (in): 21.75 Infant Length (cm): 55.25 CORD INFORMATION BABY A No. Cord Vessels: 3 Nuchal Cord : N/A Cord Blood Taken: Yes-For Eval (Mom's Blood Type - or O+) Suction: Mouth; Nose ASSESSMENT BABY A Complications: Meconium Physical Findings at Delivery: Within Normal Limits; Bruising Respirations: Appears Normal Skin to Skin: Yes Loan Inspector/ALS Called : No Care By: Naeem Márquez RN Transferred To: Remains with Mother BABY B INFORMATION : N/A
[2020-08-16] MEDS: DOCUSATE SODIUM 100 MG CAPSULE PO SCH (18:05)
[2020-08-16] MEDS: FERROUS SULFATE 325 MG TABLET PO SCH (18:05)
[2020-08-16] MEDS: IBUPROFEN 800 MG TABLET PO SCH ×2 (18:05→21:42)
[2020-08-16] MEDS: FAMOTIDINE 20 MG TABLET PO SCH (21:33)
[2020-08-17] MEDS: IBUPROFEN 800 MG TABLET PO SCH ×3 (06:11→22:41)
[2020-08-17 07:40] LABS: HEMATOCRIT 28.8 % (36.0-47.0); MEAN CORPUSCULAR HEMOGLOBIN 30.9 pg (27.0-33.4); MEAN CORPUSCULAR HGB CONC 34.7 g/dL (32.0-36.0); MEAN CORPUSCULAR VOLUME 89 fl (80-97); PLATELET COUNT 191 10^3/uL (150-450); RED BLOOD COUNT 3.23 10^6/uL (3.72-5.28); RED CELL DISTRIBUTION WIDTH 15.4 % (11.5-14.0); WHITE BLOOD COUNT 13.5 10^3/uL (4.0-10.5)
--- NOTE | 2020-08-17 11:40 | PDOC PROGRESS REPORT ---
Subjective-OB Progress Note for:: 08/17/20 Subjective: Doing well, baby at BS, O neg, needs Rhogam, Physical Exam (OB) Vital Signs: Temp Pulse Resp BP Pulse Ox 97.7 F 74 16 118/67 100 08/17/20 07:33 08/17/20 07:33 08/17/20 07:33 08/17/20 07:33 08/17/20 07:33 Intake & Output 08/16/20 08/17/20 08/18/20 06:59 06:59 05:59 Intake Total 1000 Balance 1000 Weight 139.6 kg - PIH/Pre-Eclampsia DTR's: 2 + Clonus: Negative Headache: Absent Epigastric Pain: No Visual Changes: No - Maternal Morbidity 59. Maternal Morbidity (serious complications experinced by the mother associated with labor and delivery: None of the above - Lochia Lochia Amount: Scant < 10 ml Lochia Color: Rubra/Red - Abdomen Description: Soft, Round Hernia Present: No Fundal Description: Firm, Midline Fundal Height: u/u - u/2 Objective-Diagnostic Laboratory: 08/17/20 07:16 08/17/20 08/17/20 07:16 07:16 WBC 13.5 H RBC 3.23 L Hgb 10.0 L D Hct 28.8 L MCV 89 MCH 30.9 MCHC 34.7 RDW 15.4 H Plt Count 191 Blood Type O NEGATIVE Assessment and Plan(PN) - Assessment and Plan (1) Obstetrical laceration, second degree Is this a current diagnosis for this admission?: Yes (2) Rh negative status during Qualifiers: Trimester: first trimester Qualified Code(s): O26.891 - Other specified related conditions, first trimester; Z67.91 - Unspecified blood type, Rh negative Is this a current diagnosis for this admission?: Yes (3) Vaginal delivery Is this a current diagnosis for this admission?: Yes (4) Advanced maternal age (AMA), 40 years or greater Is this a current diagnosis for this admission?: Yes - Time Spent with Patient Time with patient: Less than 15 minutes Medications reviewed and adjusted accordingly: Yes - Disposition Anticipated Discharge Disposition: Home, Self Care Anticipated Discharge Timeframe: within 24 hours
[2020-08-17] MEDS: DOCUSATE SODIUM 100 MG CAPSULE PO SCH ×2 (11:47→17:25)
[2020-08-17] MEDS: FAMOTIDINE 20 MG TABLET PO SCH ×2 (11:47→22:42)
[2020-08-17] MEDS: FERROUS SULFATE 325 MG TABLET PO SCH ×2 (11:47→17:25)
[2020-08-17] MEDS: PRENATAL VITAMIN W DHA CAPSULE PO SCH (11:47)
[2020-08-17] MEDS: SENNOSIDES/DOCUSATE 8.6-50 MG 1 EACH TABLET PO SCH (11:47)
[2020-08-18] MEDS: IBUPROFEN 800 MG TABLET PO SCH ×2 (05:50→14:09)
[2020-08-18] MEDS: SENNOSIDES/DOCUSATE 8.6-50 MG 1 EACH TABLET PO SCH (09:27)
[2020-08-18] MEDS: PRENATAL VITAMIN W DHA CAPSULE PO SCH (09:27)
[2020-08-18] MEDS: DOCUSATE SODIUM 100 MG CAPSULE PO SCH (09:27)
[2020-08-18] MEDS: FERROUS SULFATE 325 MG TABLET PO SCH (09:27)
[2020-08-18] MEDS: FAMOTIDINE 20 MG TABLET PO SCH (09:27)
--- NOTE | 2020-08-18 10:30 | PDOC PROGRESS REPORT ---
Subjective-OB Progress Note for:: 08/18/20 Subjective: baby, doing well, ready to go home, , fob at BS, no c/o Physical Exam (OB) Vital Signs: Temp Pulse Resp BP Pulse Ox 98.5 F 86 18 125/72 98 08/18/20 08:33 08/18/20 07:52 08/18/20 07:52 08/18/20 07:52 08/18/20 07:52 Intake & Output 08/17/20 08/18/20 08/19/20 07:59 06:59 06:59 Intake Total Balance - PIH/Pre-Eclampsia DTR's: 2 + Clonus: Negative Headache: Absent Epigastric Pain: No Visual Changes: No - Maternal Morbidity 59. Maternal Morbidity (serious complications experinced by the mother associated with labor and delivery: None of the above - Lochia Lochia Amount: Scant < 10 ml Lochia Color: Rubra/Red - Abdomen Description: Soft, Round Hernia Present: No Fundal Description: Firm, Midline Fundal Height: u/u - u/2 Objective-Diagnostic Laboratory: 08/17/20 07:16 08/17/20 07:16 Blood Type O NEGATIVE Assessment and Plan(PN) - Assessment and Plan (1) Obstetrical laceration, second degree Is this a current diagnosis for this admission?: Yes (2) Rh negative status during Qualifiers: Trimester: first trimester Qualified Code(s): O26.891 - Other specified related conditions, first trimester; Z67.91 - Unspecified blood type, Rh negative Is this a current diagnosis for this admission?: Yes (3) Vaginal delivery Is this a current diagnosis for this admission?: Yes (4) Advanced maternal age (AMA), 40 years or greater Is this a current diagnosis for this admission?: Yes - Time Spent with Patient Time with patient: Less than 15 minutes Medications reviewed and adjusted accordingly: Yes - Disposition Anticipated Discharge Disposition: Home, Self Care Anticipated Discharge Timeframe: within 24 hours - home today
--- NOTE | 2020-08-18 10:34 | PDOC DISCHARGE SUMMARY ---
Impression - Admit/DC Date/PCP Admission Date/Primary Care Provider: 08/16/20 07:14 NATHALY WITT NP Discharge Date: 08/18/20 - Discharge Diagnosis (1) Obstetrical laceration, second degree Is this a current diagnosis for this admission?: Yes (2) Rh negative status during Is this a current diagnosis for this admission?: Yes (3) Vaginal delivery Is this a current diagnosis for this admission?: Yes (4) Advanced maternal age (AMA), 40 years or greater Is this a current diagnosis for this admission?: Yes - Additional Information Resuscitation Status: Full Code Discharge Diet: As Tolerated, Regular Discharge Activity: Activity As Tolerated, Pelvic Rest Referrals: NATHALY WITT NP [Primary Care Provider] - (wha 1 week, prn) Home Medications: Vitamin [-U Multiple Vitamin Capsule] 1 cap PO DAILY 08/16/20 Valacyclovir HCl [Valtrex 500 mg Tablet] 1,000 mg PO 08/16/20 HPI Gestational Age: 41.2 Reason(s) for Admission: Induction of Labor Admission Note: post dates Procedures: NST, Ultrasound Intrapartum Procedure(s): Spontaneous Vaginal Delivery Complication(s): Laceration-Vaginal, Laceration-Perineal Laceration-Degree: 2nd Hospital Course Hospital Course: routine 59. Maternal Morbidity (serious complications experinced by the mother associated with labor and delivery: None of the above Results Laboratory Results: WBC 13.5 10^3/uL (4.0-10.5) H 08/17/20 07:16 RBC 3.23 10^6/uL (3.72-5.28) L 08/17/20 07:16 Hgb 10.0 g/dL (12.0-15.5) L D 08/17/20 07:16 Hct 28.8 % (36.0-47.0) L 08/17/20 07:16 MCV 89 fl (80-97) 08/17/20 07:16 MCH 30.9 pg (27.0-33.4) 08/17/20 07:16 MCHC 34.7 g/dL (32.0-36.0) 08/17/20 07:16 RDW 15.4 % (11.5-14.0) H 08/17/20 07:16 Plt Count 191 10^3/uL (150-450) 08/17/20 07:16 Lymph % (Auto) 16.2 % (13-45) 08/16/20 06:58 [place] % (Auto) 5.5 % (3-13) 08/16/20 06:58 Eos % (Auto) 1.3 % (0-6) 08/16/20 06:58 Baso % (Auto) 0.6 % (0-2) 08/16/20 06:58 Absolute Neuts (auto) 9.8 10^3/uL (1.7-8.2) H 08/16/20 06:58 Absolute Lymphs (auto) 2.1 10^3/uL (0.5-4.7) 08/16/20 06:58 Absolute Monos (auto) 0.7 10^3/uL (0.1-1.4) 08/16/20 06:58 Absolute Eos (auto) 0.2 10^3/uL (0.0-0.6) 08/16/20 06:58 Absolute Basos (auto) 0.1 10^3/uL (0.0-0.2) 08/16/20 06:58 Seg Neutrophils % 76.4 % (42-78) 08/16/20 06:58 Urine Color DAVID 08/16/20 07:00 Urine Appearance CLOUDY 08/16/20 07:00 Urine pH 5.0 (5.0-9.0) 08/16/20 07:00 Ur Specific [place] 1.028 08/16/20 07:00 Urine Protein 30 mg/dL (NEGATIVE) H 08/16/20 07:00 Urine Glucose (UA) NEGATIVE mg/dL (NEGATIVE) 08/16/20 07:00 Urine Ketones NEGATIVE mg/dL (NEGATIVE) 08/16/20 07:00 Urine Blood LARGE (NEGATIVE) H 08/16/20 07:00 Urine Nitrite NEGATIVE (NEGATIVE) 08/16/20 07:00 Urine Bilirubin NEGATIVE (NEGATIVE) 08/16/20 07:00 Urine Urobilinogen NEGATIVE mg/dL (<2.0) 08/16/20 07:00 Ur Leukocyte Esterase NEGATIVE (NEGATIVE) 08/16/20 07:00 Urine Ascorbic Acid NEGATIVE (NEGATIVE) 08/16/20 07:00 Urine Opiates Screen NEGATIVE 08/16/20 07:00 Urine Methadone Screen NEGATIVE 08/16/20 07:00 Ur Barbiturates Screen NEGATIVE 08/16/20 07:00 Ur Phencyclidine Scrn NEGATIVE 08/16/20 07:00 Ur Amphetamines Screen NEGATIVE 08/16/20 07:00 U Benzodiazepines Scrn NEGATIVE 08/16/20 07:00 Urine Cocaine Screen NEGATIVE 08/16/20 07:00 U Marijuana (THC) Screen NEGATIVE 08/16/20 07:00 Blood Type O NEGATIVE 08/17/20 07:16 Antibody Screen NEGATIVE 08/16/20 06:58 Screen NEGATIVE 08/17/20 07:16 Plan Health Concerns: anemia Plan of Treatment: discharge home, take iron and PNV's, rev S&S to report Goals: no complications Time Spent: Less than 30 Minutes
[2020-08-18 12:12] VITALS: BP 122/69
== END 2020-08-18 16:00 | disposition home or self-care (01) | DRG 806 ==
LOC: LR 07:14 → 2S 14:32
PROVIDERS: ADMIT Student in an Organized Health Care Education/Training Program; ATTEND Student in an Organized Health Care Education/Training Program
PROC: 10E0XZZ Delivery of Products of Conception, External Approach (ICD-10-PCS; principal; 2020-08-16)
PROC: 0KQM0ZZ Repair Perineum Muscle, Open Approach (ICD-10-PCS; 2020-08-16)
PROC: 3E0234Z Introduction of Serum, Toxoid and Vaccine into Muscle, Percutaneous Approach (ICD-10-PCS; 2020-08-18)
DX: O48.0 Post-term pregnancy (principal); O98.32 Other infections with a predominantly sexual mode of transmission complicating childbirth; Z37.0 Single live birth; O99.214 Obesity complicating childbirth; A60.00 Herpesviral infection of urogenital system, unspecified; Z3A.41 41 weeks gestation of pregnancy; E66.01 Morbid (severe) obesity due to excess calories; O69.3XX0 Labor and delivery complicated by short cord, not applicable or unspecified; O70.1 Second degree perineal laceration during delivery; O77.0 Labor and delivery complicated by meconium in amniotic fluid; O26.893 Other specified pregnancy related conditions, third trimester; Z67.41 Type O blood, Rh negative; Z79.899 Other long term (current) drug therapy; Z88.0 Allergy status to penicillin
CPT/HCPCS: 36415; 80307; 81005; 85025; 85027; 85461; 86592; 86850; 86900; 86901; J2405; J2590; J2790; J3490